=== PATIENT | male | born 1940 | race Caucasian/White ===

== ENCOUNTER 2023-12-14 16:54 | Emergency (ER) | payer BC ==
[~2023-12-14] VITALS: Ht 170.2 cm; Wt 92.1 kg
[2023-12-14 17:10] VITALS: BP 142/67; PULSE 73; RESP 15; TEMP 98; O2SAT 98
== END 2023-12-14 17:44 | disposition home or self-care (01) ==
LOC: ER 16:54
DX: T16.2XXA Foreign body in left ear, initial encounter (principal); Z88.2 Allergy status to sulfonamides; W44.G1XA Audio device entering into or through a natural orifice, initial encounter; Y93.89 Activity, other specified; Y92.89 Other specified places as the place of occurrence of the external cause; Y99.8 Other external cause status
CPT/HCPCS: 69200; 99284